=== PATIENT | female | born 1975 | race Caucasian/White ===

== ENCOUNTER → 2018-04-06 | Outpatient (CLI) | payer BC ==
--- NOTE | 2018-04-06 12:02 | WOMENS IMAGING REPORT ---
EXAM DESCRIPTION: U/S THYROID/ST TIS HEAD NECK COMPLETED DATE/TIME: 04/06/2018 9:42 am REASON FOR STUDY: THYROIDMEGALY COMPARISON: None. TECHNIQUE: Dynamic and static taylor-scale images acquired of the thyroid gland. Selected additional c olor/power Doppler images recorded. All images stored to PACS. LIMITATIONS: None. FINDINGS: RIGHT LOBE: 4.1 x 1.4 x 1.3 cm in diameters. Homogeneous echotexture. No cystic or solid masses. LEFT LOBE: Measuring 6 x 6 mm in diameters. Homogeneous echotexture. A solid nodule is identified m easuring 1.2 x 0.6 x 1.1 cm in diameters. 2 complex nodules are identified with the largest measurin g 1.5 x 0.9 x 0.8 cm in diameters and us ISTHMUS: 2.5 mm in thickness. Homogeneous echotexture. No cystic or solid masses. OTHER: No other significant finding. IMPRESSION: Thyroid nodules on the left as noted above. Followup recommendations are as noted below . COMMENT: RECOMMENDATIONS FOR THYROID NODULES 1 CM OR LARGER Solitary nodules: Microcalcifications - FNA if 1 cm or greater. Solid or coarse calcification - FNA if 1.5 cm or greater. Mixed Solid/Cystic or Cystic with Mural Nodule - FNA if 2 cm or greater. None of the above but substantial growth since previous - FNA. Cystic with none of the above features and no significant growth - no FNA. Multiple nodules: Use above criteria for selection of nodules to FNA/biopsy. Biopsy probably not necessary in enlarged gland with multiple nodules of similar appearance. Abnormal lymph nodes - FNA/biopsy. Reference: Management of Thyroid Nodules Detected at [place]: Society of Radiologists in Ultrasound Consensus Stateme nt. Radiology 2005; 237:794-800 TECHNICAL DOCUMENTATION: JOB ID: [id number] [employer]- All Rights Reserved Reading location - IP/workstation name: [email or web address]
== END ==
LOC: WI 08:50
PROVIDERS: ATTEND Student in an Organized Health Care Education/Training Program
DX: E04.1 Nontoxic single thyroid nodule (principal)
CPT/HCPCS: 76536

== ENCOUNTER → 2019-07-17 | Outpatient (CLI) | payer BC ==
--- NOTE | 2019-07-17 11:07 | RADIOLOGY REPORT (SQ) ---
EXAM DESCRIPTION: KNEE RIGHT 2 VIEWS COMPLETED DATE/TIME: 07/17/2019 8:47 am REASON FOR STUDY: PAIN IN RIGHT KNEE (M25.561) M25.561 PAIN IN RIGHT KNEE COMPARISON: None. NUMBER OF VIEWS: Two views. TECHNIQUE: AP and lateral radiographic images acquired of the right knee. LIMITATIONS: None. FINDINGS: MINERALIZATION: Normal. BONES: No acute fracture or dislocation. No worrisome bone lesions. No significant osteophytes. JOINT: No effusion. No chondrocalcinosis. OTHER: No other significant finding. IMPRESSION: NEGATIVE STUDY OF THE RIGHT KNEE. NO EXPLANATION FOR PAIN. TECHNICAL DOCUMENTATION: JOB ID: [id number] [employer]- All Rights Reserved Reading location - IP/workstation name: [email or web address]
== END ==
LOC: RAD 07:19
PROVIDERS: ATTEND Physician Assistant
DX: M25.561 Pain in right knee (principal)

== ENCOUNTER 2020-02-12 15:00 | Emergency (ER) | payer SELFPAY ==
[2020-02-12] MEDS ORDERED: ONDANSETRON HCL INJ/PF 4 MG/2 ML SDV IV ONE (15:08)
[2020-02-12] MEDS ORDERED: OXYCODONE HCL SR 10 MG TABLET PO ONE (15:08)
--- NOTE | 2020-02-12 15:16 | ER Document Report ---
ED General - General Stated Complaint: CHEST PAIN Time Seen by Provider: 02/12/20 15:05 Primary Care Provider: MADDISON MARSH DO [NO LOCAL MD] - Follow up as needed Notes: 44-year-old female with no cardiac history but history of chronic pain on methadone and Percocet presents with chest pain onset this morning with nausea vomiting. Took her methadone but could not keep her Percocet down. She is no shortness of breath initially it radiated to her belly and left arm. She of thrombosis DVT no pleuritic component no leg swelling no hemoptysis. No recent surgeries. TRAVEL OUTSIDE OF THE [place] IN LAST 30 DAYS: No - Related Data Allergies/Adverse Reactions: No Known Allergies Allergy (Verified 09/08/14 01:39) Past Medical History - Social History Smoking Status: Current Every Day Smoker Family History: Reviewed & Not Pertinent - Past Medical History Cardiac Medical History: Denies: Hx Coronary Artery Disease, Hx Heart Attack, Hx Hypertension Pulmonary Medical History: Denies: Hx Asthma, Hx Bronchitis, Hx COPD, Hx Pneumonia Neurological Medical History: Denies: Hx Cerebrovascular Accident, Hx Seizures Musculoskeletal Medical History: Denies Hx Arthritis - Immunizations Hx Diphtheria, Pertussis, Tetanus Vaccination: Yes Review of Systems - Review of Systems Notes: REVIEW OF SYSTEMS GEN: Denies fever, chills, weight loss ENT: Denies sore throat, nasal discharge, ear pain EYES: Denies blurry vision, eye pain, discharge CV: D chest pain RESP: Denies cough, shortness of breath, wheezing GI: Denies abdominal pain, nausea, vomiting, diarrhea MSK: Denies joint pain/swelling, edema, SKIN: Denies rash, skin lesions LYMPH: Denies swollen glands/lymph nodes NEURO: Denies headache, focal weakness or numbness, dizziness PSYCH: Denies depression, suicidal or homicidal ideation PHYSICAL EXAMINATION General: No acute distress, well-nourished Head: Atraumatic, normocephalic ENT: Mouth normal, oropharynx moist, no exudates or tonsillar enlargement Eyes: Conjunctiva normal, pupils equal, lids normal Neck: No JVD, supple, no guarding CVS: Normal rate, regular rhythm, no murmurs Resp: No resp distress, equal and normal breath sounds bilaterally GI: Nondistended, soft, no tenderness to palpation, no rebound or guarding Ext: No deformities, no edema, normal range of motion in upper and lower ext Back: No CVA or midline TTP Skin: No rash, warm Lymphatic: No lymphadeopathy noted Neuro: Awake, alert. Face symmetric. GCS 15. Psych: Anxious. No suicidal or homicidal ideation. Physical Exam - Vital signs Vitals: Temp 98.0 F 02/12/20 15:02 Course - Re-evaluation Re-evalutation: 02/12/20 18:16 Chest pain, no history of coronary disease no risk factors for DVT, no tachycardia leg swelling, physical exam normal except for anxiety. Pain improved spontaneously in the ED. EKG negative labs negative. Patient is doing very anxious while being in the ED and wants to be discharged. Is reasonable. She is to follow-up with her primary. Do not think she needs admission for ACS risk education his heart score is 1. I have discussed with the patient there likely diagnosis, aftercare plan, follow-up plans and my usual and customary return precautions. They verbalized understanding of this. - Vital Signs Vital signs: Temp Pulse Resp BP Pulse Ox 98.2 F 84 13 99/70 L 99 02/12/20 16:46 02/12/20 15:51 02/12/20 16:42 02/12/20 16:43 02/12/20 16:42 - Laboratory Result Diagrams: 02/12/20 15:25 02/12/20 15:25 Laboratory results interpreted by me: 02/12/20 02/12/20 15:25 15:25 Hct 35.8 L Chloride 109 H Calcium 7.8 L - EKG Interpretation by Tn EKG shows normal: Sinus rhythm Rate: Normal When compared to previous EKG there are: Previous EKG unavailable - QTC upper limit normal Discharge - Discharge Clinical Impression: Chest pain Qualifiers: Chest pain type: unspecified Qualified Code(s): R07.9 - Chest pain, unspecified Condition: Good Disposition: HOME, SELF-CARE Instructions: Chest Wall Pain ([facility]) Referrals: MADDISON MARSH DO [NO LOCAL MD] - Follow up as needed
[2020-02-12 15:37] LABS: ABSOLUTE LYMPHOCYTES (AUTO) 1.5 10^3/uL (0.5-4.7); ABSOLUTE MONOCYTES (AUTO) 0.6 10^3/uL (0.1-1.4); ABSOLUTE NEUT (AUTO) 7.1 10^3/uL (1.7-8.2); BASOPHILS % (AUTO) 0.3 % (0-2); EOSINOPHILS % (AUTO) 0.5 % (0-6); HEMATOCRIT 35.8 % (36.0-47.0); HEMOGLOBIN 12.2 g/dL (12.0-15.5); LYMPHOCYTES % (AUTO) 16.4 % (13-45); MEAN CORPUSCULAR HEMOGLOBIN 32.6 pg (27.0-33.4); MEAN CORPUSCULAR HGB CONC 34.1 g/dL (32.0-36.0); MEAN CORPUSCULAR VOLUME 96 fl (80-97); MONOCYTES % (AUTO) 6.6 % (3-13); PLATELET COUNT 219 10^3/uL (150-450); RED BLOOD COUNT 3.74 10^6/uL (3.72-5.28); RED CELL DISTRIBUTION WIDTH 13.5 % (11.5-14.0); SEGMENTED NEUTROPHILS % (AUTO) 76.2 % (42-78); TOTAL CELLS COUNTED % (AUTO) 100 %; WHITE BLOOD COUNT 9.3 10^3/uL (4.0-10.5)
[2020-02-12 16:07] LABS: ALBUMIN 3.9 g/dL (3.5-5.0); ALKALINE PHOSPHATASE 44 U/L (38-126); ANION GAP 5 (5-19); ASPARTATE AMINO TRANSFERASE 17 U/L (14-36); BILIRUBIN,TOTAL 0.3 mg/dL (0.2-1.3); BLOOD UREA NITROGEN 7 mg/dL (7-20); CALCIUM 7.8 mg/dL (8.4-10.2); CARBON DIOXIDE 23 mmol/L (22-30); CHLORIDE 109 mmol/L (98-107); CREATINE KINASE 72 U/L (30-135); GLUCOSE 103 mg/dL (75-110); POTASSIUM 3.7 mmol/L (3.6-5.0); TOTAL PROTEIN 6.4 g/dL (6.3-8.2)
[2020-02-12 16:19] LABS: CREATINE KINASE MB 1.36 ng/mL (<4.55)
[2020-02-12 16:22] LABS: TROPONIN I < 0.012 ng/mL
[2020-02-12 16:46] VITALS: BP 99/70
--- NOTE | 2020-02-12 22:15 | EKG REPORT ---
SEVERITY:- BORDERLINE ECG - SINUS RHYTHM LOW VOLTAGE IN FRONTAL LEADS BORDERLINE R WAVE PROGRESSION, ANTERIOR LEADS : Confirmed by: Preethi Sorto 12-Feb-2020 22:14:35
== END 2020-02-12 17:03 | disposition home or self-care (01) ==
LOC: ER 15:00
DX: G89.29 Other chronic pain (principal); R07.9 Chest pain, unspecified; R11.2 Nausea with vomiting, unspecified; F17.200 Nicotine dependence, unspecified, uncomplicated; F11.90 Opioid use, unspecified, uncomplicated
CPT/HCPCS: 93005; 99285; 96374; 36415; 82553; 82550; 85025; 80053; 84484; 93010; J2405

== ENCOUNTER → 2020-07-25 | Outpatient (CLI) | payer SELFPAY ==
--- NOTE | 2020-07-25 09:59 | ER [facility] ASSESSMENT REPORT ---
Intake - In the Last 14 days Have you traveled outside [place]?: No Have you been in close contact with someone CONFIRMED: No Worked in Healthcare?: No - Symptoms Subjective Fever(Seminary feverish): Yes Chills: No Muscule Aches: No Runny Nose: No Sore Throat: Yes Cough (New or worsening chronic cough): No Shortness of breath: No Nausea or Vomiting: Yes Headache: Yes Abdominal Pain: No Diarrhea(3 or more loose stools in last 24 hours): No - Do you have any of the following Chronic lung disease: Asthma or emphysema or COPD: No Cystic Fibrosis: No Diabetes: No High Blood Pressure: No Cardiovascular Disease: No Chronic Kidney Disease: No Chronic Liver Disease: No Chronic blood disorder like Sickle Cell Disease: No Weak immune system due to disease or medication: Yes Immune System Comment: thyroid cancer Neurologic condition that limits movement: No Developmental delay - Moderate to Severe: No Recent (within past 2 weeks) or current : No Morbid Obesity (>100 pounds over ideal weight): No - Objective Temperature: 98.9 F Pulse Rate: 91 Respiratory Rate: 16 Blood Pressure: 117/57 O2 Sat by Pulse Oximetry: 97 Objective: Given above, testing performed: If Testing Performed: Test Specimen Type Sent to General - General Mode of Arrival: Ambulatory Information source: Patient Notes: Patient presents to the [facility] for screening for the coronavirus. Patient reports having symptoms for the past 3 days including fever, sore throat, headache and nausea. - Related Data Allergies/Adverse Reactions: No Known Allergies Allergy (Verified 09/08/14 01:39) Past Medical History - General Information source: Patient - Social History Smoking Status: Current Every Day Smoker Family History: Reviewed & Not Pertinent - Past Medical History Cardiac Medical History: Denies: Hx Coronary Artery Disease, Hx Heart Attack, Hx Hypertension Pulmonary Medical History: Denies: Hx Asthma, Hx Bronchitis, Hx COPD, Hx Pneumonia Neurological Medical History: Denies: Hx Cerebrovascular Accident, Hx Seizures Endocrine Medical History: Reports: Hx Hypothyroidism Musculoskeletal Medical History: Denies Hx Arthritis Past Surgical History: Reports: Hx Cholecystectomy Physical Exam - Notes Notes: The patient was evaluated during the global Covid 19 pandemic, and that diagn osis was suspected/considered upon their initial presentation. Their evaluation, treatment and testing was consistent with current guidelines for patients who present with complaints or symptoms that may be related to Covid 19. Full physical exam could not be performed due to covid 19 isolation protocols. Constitutional: Nontoxic appearance, no acute distress Eyes: Nonicteric, extraocular movements intact, sclera clear Cardiovascular: Heart rate and rhythm regular, no JVD Respiratory: Breath sounds clear bilaterally, nonlabored breathing, no use of accessory muscles, no tachypnea Gastrointestinal: Abdomen not distended Muculoskeletal: Moves all extremities well, normal gait Skin: Normal color Neuro: Awake alert oriented, normal speech Psych: Normal mood and affect Diagnostic Results Laboratory Results: Patient presents with upper respiratory symptoms worrisome for possible Covid 19. Patient does not have emergency worrying symptoms such as difficulty breathing, shortness of breath, chest pain, pressure, confusion or cyanosis. Patient appears suitable for discharge as they are not of an advanced age, do not have any chronic medical conditions such as diabetes, CAD, immune deficiency, chronic lung disease or chronic kidney disease. Patient's vital signs are stable and patient is nontoxic in appearance. Good return precautions have been discussed with patient, patient verbalized understanding and is agreeable with discharge plan of care at this time. Patient Education/Counseling Counseling/Education: Patient was provided with discharge information including: As a person under investigation for Covid 19, the [place] department of Health and Human Services, division of public health advises you to adhere to the following guidance until your test results are reported to you. If your test result is positive, you will receive additional information from your provider and your local health department at that time. Remain at home until you are cleared by the health provider or public health authorities. Keep a log of visitors to your home, notify any visitors to your home of your isolation status. If you plan to move to a new address or leave the county, notify the local health department in your County. Call your doctor or seek care if you have an urgent medical need. Before seeking medical care, call ahead to get instructions from the provider before arriving at the medical office clinic or hospital. Notify them that you are being tested for the virus that causes Covid 19 so that arrangements can be made, as necessary, to prevent transmission to others in the healthcare setting. Next, notify the local health department in your county. If a medical emergency arises and you need to call 911, inform the first responders that you are being tested for the virus that causes Covid 19. Next, notify the local health department in your county. [facility] Discharge - Discharge Clinical Impression: Encounter for screening laboratory testing for COVID-19 virus Condition: Stable Disposition: Home; Selfcare
[2020-07-25 10:00] VITALS: BP 117/57
[2020-07-25 10:41] LABS: A TYPE INFLUENZA AG NEGATIVE (NEGATIVE); B INFLUENZA AG NEGATIVE (NEGATIVE)
--- OUTSIDE RECORDS SUMMARY | 2020-07-26 15:13 | XMS REPORT ---
:1975 Author Organization [facility] [place] [facility] [place] [address] [place] [address] Care Team Providers Name Role Phone Hedge Attending Clinician Unavailable Curtis SOLORZANO Attending Clinician Unavailable Caleb Unavailable Unavailable Mukesh Gómez Unavailable Leeann SOLORZANO Unavailable Allergies, Adverse Reactions, Alerts This patient has no known allergies or adverse reactions. Medications Ordered Filled Start Stop Current Ordering Indication Dosage Frequency Signature Comments Components Medication Medication Date Date Medication? Clinician (SIG) Name Name Oscil 2017-09 Yes Gina 1{Table Q0.5D Oscal 500/200 D-3 0-27 Ellis t} 500/200 500-200 00:00: D-3 MG-UNIT 00 500-200 Oral Tablet MG-UNIT Oral Tablet 1 (one) Tablet Tablet twice a day for 30 days Quantity: 60 {Tablet} Refills: 3 Ordered: 8 Gina Ellis Start : 8Active Oscal 2017-09 Yes 1 Q0.5D Oscal 500/200 D-3 0-27 500/200 500-200 00:00: D-3 MG-UNIT 00 500-200 Oral Tablet MG-UNIT Oral Tablet 1 (one) Tablet twice a day (500-200 MG-UNIT) Start : 8Active Calcitriol 2017-09 Yes Gina 1{Capsu QD Calcitriol 0.5 MCG 0-26 Ellis le} 0.5 MCG Oral 00:00: Oral Capsule 00 Capsule 1 (one) Capsule Capsule daily for 30 days Quantity: 30 {Capsule} Refills: 3 Ordered: 8 Gina Ellis Start : 8Active Calcitriol 2017-09 Yes 1 QD Calcitriol 0.5 MCG 0-26 0.5 MCG Oral 00:00: Oral Capsule 00 Capsule 1 (one) Capsule daily (0.5 MCG) Start : 8Active Methadone 2017- Yes Methadone HCl 10 MG 8-16 HCl 10 MG Oral Tablet 08:41: Oral 50 Tablet (10 MG) Active Oxycodone-A Yes Oxycodone- cetaminophe 8-16 Acetaminop n 10-325 MG 08:41: hen 10-325 Oral Tablet 50 MG Oral Tablet (10-325 MG) Active Omeprazole 2018- No 0{Capsu QD Omeprazole 20 MG Oral 04-18 le_DR} 20 MG Oral Capsule 00:00: 00:00 Capsule Delayed 00 :00 Delayed Release Release ; Capsule DR Capsule DR daily for 30 days Quantity: 30 {Capsule} Refills: 0 Ordered: 19-May-2018 Urmila Ross Start: 18-Apr-2018 End: 18-May-2018 Status: Inactive Problems Condition Condition Condition Status Onset Resolution Last Treatin g Comments Name Details Category Date Date Treatment Clinician Date Arthritis Arthritis Problem Active 2018-06-06 Caleb, HL7.CCDAR2 11:48:56 Gina Dysphonia, Dysphonia, Problem Active 2018-06-06 Paola l, hoarseness hoarseness HL7.CCDAR2 11:48:56 Marilin l (Renamed (Renamed from from Choreic Choreic dysphonia) dysphonia) Encounter Encounter Problem Active 2018-06-06 Caleb, for for HL7.CCDAR2 11:48:57 Gina education education Esophageal Esophageal Problem Active 2018-06-06 Diegoe l, reflux/LPR reflux/LPR HL7.CCDAR2 12:31:32 Marilin l (Renamed (Renamed from from Gastroesoph Gastroesoph ageal ageal reflux reflux disease) disease) 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, disease disease HL7.CCDAR2 11:48:57 Gina Laryngeal Laryngeal Problem Active 2018-06-06 Ellis, edema edema HL7.CCDAR2 11:48:57 Gina (Renamed (Renamed from Edema from Edema of larynx) of larynx) Migraines 06599-1 Inactiv 2018-06-06 sujata Mayorga 11:48:56 Krista Migraines Krista Mayorga Shortness Shortness Problem Active 2018-06-06 Caleb, of breath of breath HL7.CCDAR2 11:48:57 Gina Thyroid Thyroid Problem Active 2018-06-06 Caleb, nodule nodule HL7.CCDAR2 11:48:57 Gina Adenopathy Adenopathy Problem Active 2018-06-06 Paola mcleod, (Renamed (Renamed HL7.CCDAR2 11:48:57 Gina from from Lymphadenop Lymphadenop athy) athy) Follow up Follow up Problem Active 2018-06-06 Caleb, surgery surgery HL7.CCDAR2 12:31:41 Gina (Renamed (Renamed from from Encounter Encounter for for examination examination following following surgery) surgery) Dysphagia, Dysphagia, Problem Active Caleb, pharyngoeso pharyngoeso HL7.CCDAR2 Kryst al phageal phageal phase phase (Renamed (Renamed from from Pharyngoeso Pharyngoeso phageal phageal dysphagia) dysphagia) Hypocalcemi Hypocalcemi Problem Active sulma Bradshaw HL7.CCDAR2 Fran Migraines Migraines Problem Active Caleb HL7.CCDAR2 Gina Thyroid Thyroid Problem Active Caleb, (Renamed (Renamed HL7.CCDAR2 Gina 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) Not on file Not on file [id number] Procedures Procedure Date / Time Performed Performing Clinician [facility] e OFFICE CONSULTATION 2019-10-24 13:20:00 Auto OV Level 2018-10-20 00:00:00 Aspiration procedure with 2018-04-28 00:00:00 Fran Bradshaw ultrasound guidance ([id number]) Thyroid ultrasound with FNA (15157) 2018-04-28 00:00:00 Fran Bradshaw US head and neck (71407) 2018-04-28 00:00:00 Fran Bradshaw Strobe ([id number]) 2018-04-18 00:00:00 Krista Hughes Aspiration procedure with 2018-04-18 00:00:00 Fran Bradshaw ultrasound guidance (87451) Blood Pressure Monitoring Ellis, Gina Cholecystectomy Ellis, Gina Flu Vaccine Ellis, Gina Uterine ablation (64341) Krista Mayorga Thyroidectomy; Total Ellis, Gina Uterine ablation (59613) Gina Ellis Results Test Description Test Time Test Comments Text Results Atomic Results Result Comments T4,Free 2018-10-20 11:42:00 Test Item Value Reference Range Comments thyroxine, serum, free (test code = 3024-7) 0.89 ng/dl 0.89 -1.76 [facility] [id number] 11:42:00 Test Item Value Reference Range Comments chloride, serum (test code = 105.00 mmol/L 98.00-107.00 2075-0) aspartate aminotransferase 20.00 U/L 0.00-34.00 (SGOT), serum (test code = 1920-8) bilirubin, serum, total (test 0.30 mg/dL 0.30-1.20 code = 1975-2) protein, total, serum (test 6.70 g/dL 5.70-8.20 code = 2885-2) alkaline phosphatase, serum 77.00 U/L 46.00-116.00 (test code = 1783-0) sodium, serum (test code = 143.00 mmol/L 136.00-145.00 2951-2) blood glucose (test code = 94.00 mg/dL 74.00-106.00 6777-7) Estimated Glomerular 75.89 See lab intern ort for Filtration Rate (calc) (test mL/min/1.73m2 ass ociated comment(s) code = EGFR) creatinine, serum (test code 0.87 mg/dL 0.55-1.02 = 2160-0) albumin, serum (test code = 4.20 g/dL 3.40-5.00 1751-7) calcium, serum (test code = 8.80 mg/dL 8.30-10.60 1999-8) alanine aminotransferase 18.00 U/L 10.00-49.00 (SGPT), serum (test code = 1742-6) urea nitrogen, blood (test 7.00 mg/dL 9.00-23.00 code = 3094-0) potassium, serum (test code = 4.10 mmol/L 3.40-5.10 2823-3) carbon dioxide, venous blood 28.00 mmol/L 20.00-31.00 (test code = 2020-4) [id number] 11:42:00 Test Item Value Reference Range Comments magnesium, serum (test code = 2601-3) 1.84 mg/dL 1.60-2.60 [id number] 11:42:00 Test Item Value Reference Range Comments phosphate, serum (test code = 2777-1) 4.70 mg/dL 2.40-5.10 Vit D 25 [id number] 11:42:00 Test Item Value Reference Range Comments vitamin D 25-hydroxy, serum 24.50 ng/mL See lab report for associated (test code = VIT D 25-OH) commen t(s) [id number] 11:42:00 Test Item Value Reference Range Comments thyroid stimulating hormone, serum (test code = 8.67 uIU/mL 0.55-4.78 3016-3) Assessments Condition Name Status Diagnosis Date Treating Clinici an Carpal tunnel syndrome, left upper limb Active Carpal tunnel syndrome, right upper limb Active Pain in left wrist Active Pain in right wrist Active Hypocalcemia Active Postsurgical hypothyroidism Active Malignant neoplasm of thyroid gland Active Hypocalcemia Active Postsurgical hypothyroidism Active Malignant neoplasm of thyroid gland Active Hypocalcemia Active Postsurgical hypothyroidism Active Malignant neoplasm of thyroid gland Active Encounters Start End Encounter Admission Attending Care Care Encounter Date/Time Date/Time Type Type Clinicians Facility Department ID 2020-07-24 2020-07-24 [facility] [id number] 00:00:00 00:00:00 2020-07-22 2020-07-22 [facility] [id number] 00:00:00 00:00:00 2019-10-24 2019-10-24 Outpatient CLIFF Linares [id number] 13:20:00 13:20:00 [facility] [id number] \T\ Sports [id number] Medicine [id number] 2018-10-20 2018-10-20 Outpatient Curtis SOLORZANO, M[facility] Physicians [id number] 00:00:00 00:00:00 Bety Calvert - [id number] Endocrinology 2018-07-18 2018-07-18 [facility] [id number] 13:45:00 14:52:29 Visit Claire Rangel [facility] N[facility] Thro[facility] - Head & Neck Surgery[place] 2018-06-06 2018-06-06 [facility] [id number] 11:30:00 12:32:08 Visit Claire Rangel ENT ENT 2018-05-09 2018-05-09 [facility] [id number] 08:45:00 09:02:55 Visit Claire Rangel ENT ENT 2018-04-28 2018-04-28 [facility] [id number] 08:00:00 09:48:09 Visit Claire Rangel ENT ENT 2018-04-28 2018-04-28 [facility] [id number] 08:00:00 09:15:11 Visit Claire Rangel ENT ENT 2018-04-18 2018-04-18 [facility] [id number] 13:37:05 14:37:54 Visit Claire Rangel ENT ENT Family History Family Member Diagnosis Comments Start Date Stop Date Unspecified Cancer Payers Payer Name Policy Type Policy Number Effective Date Expiration D ate Bcbs Out Of State OT Plan of Treatment Planned Activity Planned Date Details Comments Future Scheduled Test [code = ] Future Scheduled Test [code = ] Future Scheduled Test [code = ] Future Scheduled Test [code = ] Future Scheduled Test [code = ] Instructions Follow up surgery (Renamed from Encounter for examination following surger y) : Follow up in one month Indicatio n: Follow up surgery (Renamed from Encount er for examination following surgery) Instructions Follow up surgery (Renamed from Encounter for examination following surger y) : *POST-OP: Post-operative instruc tions were given. Indication: Follow u p surgery (Renamed from Encounter for exam ination following surgery) Instructions Esophageal reflux/LPR (Renamed f rom Gastroesophageal reflux disease) : LPR Brochure Indication: Esophageal reflux/LPR (Renamed from Gastroe sophageal reflux disease) Instructions Esophageal reflux/LPR (Renamed f rom Gastroesophageal reflux disease) : LPR Brochure Indication: Esophageal reflux/LPR (Renamed from Gastroe sophageal reflux disease) Instructions Esophageal reflux/LPR (Renamed f rom Gastroesophageal reflux disease) : LPR Brochure Indication: Esophageal reflux/LPR (Renamed from Gastroe sophageal reflux disease) Instructions Esophageal reflux/LPR (Renamed f rom Gastroesophageal reflux disease) : LPR Brochure Indication: Esophageal reflux/LPR (Renamed from Gastroe sophageal reflux disease) Instructions Esophageal reflux/LPR (Renamed f rom Gastroesophageal reflux disease) : LPR Brochure Indication: Esophageal reflux/LPR (Renamed from Gastroe sophageal reflux disease) Instructions Esophageal reflux/LPR (Renamed f rom Gastroesophageal reflux disease) : LPR Brochure Indication: Esophageal reflux/LPR (Renamed from Gastroe sophageal reflux disease) Instructions Esophageal reflux/LPR (Renamed f rom Gastroesophageal reflux disease) : LPR Brochure Indication: Esophageal reflux/LPR (Renamed from Gastroe sophageal reflux disease) Instructions Esophageal reflux/LPR (Renamed f rom Gastroesophageal reflux disease) : LPR Brochure Indication: Esophageal reflux/LPR (Renamed from Gastroe sophageal reflux disease) Instructions Esophageal reflux/LPR (Renamed f rom Gastroesophageal reflux disease) : LPR Brochure Indication: Esophageal reflux/LPR (Renamed from Gastroe sophageal reflux disease) Instructions Esophageal reflux/LPR (Renamed f rom Gastroesophageal reflux disease) : LPR Brochure Indication: Esophageal reflux/LPR (Renamed from Gastroe sophageal reflux disease) Instructions Esophageal reflux/LPR (Renamed f rom Gastroesophageal reflux disease) : LPR Brochure Indication: Esophageal reflux/LPR (Renamed from Gastroe sophageal reflux disease) Instructions Esophageal reflux/LPR (Renamed f rom Gastroesophageal reflux disease) : LPR Brochure Indication: Esophageal reflux/LPR (Renamed from Gastroe sophageal reflux disease) Instructions Esophageal reflux/LPR (Renamed f rom Gastroesophageal reflux disease) : LPR Brochure Indication: Esophageal reflux/LPR (Renamed from Gastroe sophageal reflux disease) Instructions Esophageal reflux/LPR (Renamed f rom Gastroesophageal reflux disease) : LPR Brochure Indication: Esophageal reflux/LPR (Renamed from Gastroe sophageal reflux disease) Instructions Esophageal reflux/LPR (Renamed f rom Gastroesophageal reflux disease) : LPR Brochure Indication: Esophageal reflux/LPR (Renamed from Gastroe sophageal reflux disease) Instructions Esophageal reflux/LPR (Renamed f rom Gastroesophageal reflux disease) : LPR Brochure Indication: Esophageal reflux/LPR (Renamed from Gastroe sophageal reflux disease) Instructions Esophageal reflux/LPR (Renamed f rom Gastroesophageal reflux disease) : LPR Brochure Indication: Esophageal reflux/LPR (Renamed from Gastroe sophageal reflux disease) Instructions Esophageal reflux/LPR (Renamed f rom Gastroesophageal reflux disease) : LPR Brochure Indication: Esophageal reflux/LPR (Renamed from Gastroe sophageal reflux disease) Instructions Esophageal reflux/LPR (Renamed f rom Gastroesophageal reflux disease) : LPR Brochure Indication: Esophageal reflux/LPR (Renamed from Gastroe sophageal reflux disease) Social History Social Habit Start Date Stop Date Comments No alcohol use Tobacco use: Smoking Status Start Date Stop Date Current every day smoker Social History Observation Description Sex Female Vital Signs Vital Name Observation Time Observation Value Comments Temperature 2018-07-18 14:20:39 98.3 [degF] Method: Tymp an Weight 2018-07-18 14:20:39 186 [lb_av] Height 2018-07-18 14:20:39 69 [in_us] Body Mass Index Calculated 2018-07-18 14:20:39 27.47 kg/m2 Temperature 2018-06-06 11:58:11 97.6 [degF] Weight 2018-06-06 11:58:11 184 [lb_av] Height 2018-06-06 11:58:11 69 [in_us] BMI 2018-06-06 11:58:11 27.17 kg/m2 Temperature 2018-05-09 08:37:49 99.2 [degF] Method: Tymp anic Weight 2018-05-09 08:37:49 184 [lb_av] Height 2018-05-09 08:37:49 69 [in_us] BMI 2018-05-09 08:37:49 27.17 kg/m2 Weight 2018-04-28 08:42:01 184 [lb_av] Height 2018-04-28 08:42:01 69 [in_us] BMI 2018-04-28 08:42:01 27.17 kg/m2 Temperature 2018-04-18 13:51:58 98.3 [degF] Method: Tymp anic Weight 2018-04-18 13:51:58 184 [lb_av] Height 2018-04-18 13:51:58 69 [in_us] BMI 2018-04-18 13:51:58 27.17 kg/m2 Hospital Discharge Instructions NameDatesDetailsEsophageal reflux/LPR (Renamed from Gastroesophageal reflux disease) : *ESOPHAGEAL REFLUX Indication: Esophageal reflux/LPR (Renamed from Gastroesophageal reflux disease) Encounter for education : How to access health information online Indication: Encounter for education
== END ==
LOC: RDC 09:20
PROVIDERS: ATTEND Nurse Practitioner Family
DX: Z20.828 Contact with and (suspected) exposure to other viral communicable diseases (principal); R50.9 Fever, unspecified; J02.9 Acute pharyngitis, unspecified; R11.0 Nausea; R51.9 Headache, unspecified; E03.9 Hypothyroidism, unspecified; F17.200 Nicotine dependence, unspecified, uncomplicated
CPT/HCPCS: 87070; 87880; 87635; 87804; 99201; 99211; C9803